=== PATIENT | male | born 1995 | race Caucasian/White ===

== ENCOUNTER 2019-10-26 18:04 | Emergency (ER) | payer SELFPAY ==
[~2019-10-26] VITALS: Ht 188 cm; Wt 79.4 kg
[2019-10-26 18:09] VITALS: BP 130/71
--- NOTE | 2019-10-26 18:20 | NUR ---
C/O LAC WOUND TO LIP S/P HIT BY ANOTHER PLAYER ELBOW WHILE PLAYING BASKETBALL APPROXIMATELY 1 HOUR FNPS. STATES LEFT UPPER CENTRAL INCISOR WAS "PUSHED BACK BUT I HELD IT INTO PLACE AND IT KIND OF SLIPPED BACK INTO PLACE". DENIES PAIN AT THIS TIME. STATES NUMBNESS AND SWELLING SENSATION. MED HX: DM TYPE1, ASTHMA, HERNIA REPAIR
--- NOTE | 2019-10-26 18:21 | NUR ---
LAC TO LEFT SIDE/CORNER OF MOUTH/LIP. BLEEDING CONTROLLED.
--- NOTE | 2019-10-26 18:37 | NUR ---
[facility] EVALUATING PT AT BEDSIDE
[2019-10-26] MEDS ORDERED: LIDOCAINE MPF 1% 10 MG/ML VIAL INJ ONE (18:45)
--- NOTE | 2019-10-26 19:07 | NUR ---
REPORT TO SACHA HAMILTON, TRANSFER OF CARE AT THIS TIME.
[2019-10-26] MEDS ORDERED: BACITRACIN OINT 500 UNITS/GM PKT TP ONE ×2 (20:23→20:25)
--- NOTE | 2019-10-26 20:27 | NUR ---
BACITRACIN PLACED ON PTS LIP FOR WOUND CARE.
[2019-10-26 20:31] VITALS: BP 125/71
--- NOTE | 2019-10-26 20:31 | NUR ---
Patient discharged with v/s stable. Written and verbal after care instructions given and explained. Patient alert, oriented and verbalized understanding of instructions. Ambulatory with steady gait. All questions addressed prior to discharge. ID band removed. Patient advised to follow up with PMD. Rx of BACITRACIN, IBUPROFEN given. Patient educated on indication of medication including possible reaction and side effects. Opportunity to ask questions provided and answered.
== END 2019-10-26 20:31 | disposition home or self-care (01) ==
LOC: MED 18:04
DX: S01.511A Laceration without foreign body of lip, initial encounter (principal); S09.93XA Unspecified injury of face, initial encounter; W50.0XXA Accidental hit or strike by another person, initial encounter; Y93.67 Activity, basketball; Y92.89 Other specified places as the place of occurrence of the external cause; Y99.8 Other external cause status
CPT/HCPCS: 40650; 90471; 90715; 99284; J2001